=== PATIENT | male | born 1945 | race Caucasian/White ===

== ENCOUNTER 2017-12-22 14:20 | Observation (INO) | payer MEDICARE ==
[~2017-12-22] VITALS: Ht 177.8 cm; Wt 87.0 kg
[2017-12-22] VITALS (8 sets, daily range): BP systolic 15–186; BP diastolic 72–98; PULSE 51–65; RESP 14–20; TEMP 96.6–97.7; O2SAT 95–100
[~2017-12-22 14:20] MED LIST: ACYC30T; ALBU8I INH; ASPI81CH3; ATOR20TA PO; CART120C2 PO; CITA20TA4 PO; CO Q100C9 PO; DUONI NEB; FURO20 PO; GABA100C4 PO; GLUCOSAMINE1500 COM PO; ISOS30TA3 PO; METO50TA PO; MIRA25TA PO; MULT1TAB PO; NITR0.4S SL; PRED10 PO; PYRI1TAB5; TIMO0.5S29 EACH EYE; TRAZ50TA4 PO; TRIA.1%T TOP; VASO10TA8 PO; Z.0.COMMODE-3:1; Z.0.CPM; Z.0.WALKERFRONT; ZOVI400T15 PO; [UNRECOGNIZED DRUG - CODE] TOPICAL
[2017-12-22] MEDS ORDERED: ONDANSETRON HCL 4 MG/2 ML VIAL IV PUSH ONE (14:45)
[2017-12-22] MEDS ORDERED: SODIUM CHLORID 0.9% 500 ML INJ 500 ML IV ONE (14:45)
[2017-12-22] MEDS ORDERED: MORPHINE SULFATE 4 MG/ML INJ IV PUSH ONE (14:45)
--- NOTE | 2017-12-22 15:08 | RADRPT ---
EXAM DATE/TIME: 12/22/2017 14:45 [facility] COMPARISON: CHEST SINGLE AP, June 01, 2016, 18:47. INDICATIONS : Chest pain today MEDICAL HISTORY : Hypertension. Chronic obstructive pulmonary disease. SURGICAL HISTORY : CABG. Coronary artery stent. cervical and lumbar spine fusions ENCOUNTER: Initial ACUITY: 1 day PAIN SCORE: 10/10 LOCATION: Bilateral chest FINDINGS: A single view of the chest demonstrates the lungs to be symmetrically aerated without evidence of mas s, infiltrate or effusion. Sternal wires from previous biopsy are noted. The cardiomediastinal cont ours are unremarkable. Previous cervical spine fixation CONCLUSION: Previous bypass, complicated cardiomegaly David Mccabe MD FACR on December 22, 2017 at 15:05 Board Certified Radiologist. This report was verified electronically.
--- NOTE | 2017-12-22 15:12 | PD ---
HPI Chief Complaint: Chest Pain Time Seen by Provider: 14:31 Travel History International Travel<30 days: No Contact w/Intl Traveler<30days: No Traveled to known affect area: No History of Present Illness HPI 71-year-old male that presents to the ED for evaluation of chest pain. Per patient the chest pain started around 11:00 this morning. Per patient feels like a pressure. Per patient and the right side of the chest and moved to the middle. He has a history of heart disease and has had stents and bypass. Per patient he takes aspirin and nitroglycerin as well as multiple blood pressure medications and cholesterol medications. Denies any history of diabetes. Denies any recent travel or injury. Per patient he also feels nauseous. Denies vomiting. He denies any urinary or bowel movement issues. He states that he does have a history of chronic UTIs and has been followed by urologist was trying to figure out why he continues to have UTIs even after antibiotics. Per patient the pain is mostly in the epigastric and mid chest. 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 Del Valle recommended that he comes here to get evaluated. He took a full aspirin this morning and took 3 nitroglycerin with minimal relief. Per patient the pain is 7 out of 10. Does not radiate. Denies any back pain. PFSH Past Medical History Arthritis: Yes Asthma: No Autoimmune Disease: No Blood Disorders: No Anxiety: Yes Depression: Yes Heart Rhythm Problems: No Cancer: Yes (skin) Cardiac Catheterization: Yes Cardiovascular Problems: Yes (CABG, HTN) High Cholesterol: Yes Chest Pain: No Congestive Heart Failure: No COPD: No Cerebrovascular Accident: No Diabetes: No Endocrine: No Gastrointestinal Disorders: No GERD: Yes Glaucoma: Yes Genitourinary: Yes (UTI) Headaches: No Hepatitis: No Hiatal Hernia: No Hypertension: Yes Immune Disorder: No Implanted Vascular Access Dvce: Yes Kidney Stones: No Musculoskeletal: Yes (arhtritis neck and back problems and pain) Neurologic: Yes (paralysis in past, now resolved, PN) Psychiatric: Yes (depression and anxiety) Reproductive: No Respiratory: Yes (copd) Integumentary: No Migraines: No Myocardial Infarction: Yes Renal Failure: No Seizures: No Sleep Apnea: No Thyroid Disease: No Ulcer: No Tetanus Vaccination: < 5 Years Influenza Vaccination: Yes Past Surgical History Abdominal Surgery: Yes (hernia repair) AICD: No Appendectomy: No Body Medical Devices: hardware in the back Cardiac Surgery: Yes (quad bypass x1 cardiac by-pass) Cholecystectomy: No Coronary Artery Bypass Graft: Yes (1984 AND 1989) Coronary Stent: Yes Ear Surgery: No Endocrine Surgery: No Eye Surgery: Yes (alonso cataract) Genitourinary Surgery: No Gynecologic Surgery: No Joint Replacement: No Oral Surgery: Yes (t and a) Pacemaker: No Thoracic Surgery: Yes (CABG) Other Surgery: Yes (cervical fusionx3) Social History Alcohol Use: No Tobacco Use: No Substance Use: No Allergies-Medications (Allergen,Severity, Reaction): Coded Allergies: iodine (Verified Allergy, Severe, 12/22/17) No Known Allergies (Unverified Adverse Reaction, Unknown, 12/22/17) Reported Meds & Prescriptions Reported Meds & Active Scripts Active Review of Systems Except as stated in HPI: all other systems reviewed are Neg Physical Exam Narrative GENERAL: SKIN: Warm and dry. HEAD: Atraumatic. Normocephalic. EYES: Pupils equal and round. No scleral icterus. No injection or drainage. ENT: No nasal bleeding or discharge. Mucous membranes pink and moist. Tongue is midline. No uvula deviation. NECK: Trachea midline. No JVD. CARDIOVASCULAR: Regular rate and rhythm. No murmurs, S3, S4. RESPIRATORY: No accessory muscle use. Clear to auscultation. Breath sounds equal bilaterally. GASTROINTESTINAL: Abdomen soft, non-tender, nondistended. Hepatic and splenic margins not palpable. MUSCULOSKELETAL: Extremities without clubbing, cyanosis, or edema. No obvious deformities. NEUROLOGICAL: Awake and alert. No obvious cranial nerve deficits. Motor grossly within normal limits. Five out of 5 muscle strength in the arms and legs. Normal speech. PSYCHIATRIC: Appropriate mood and affect; insight and judgment normal. Data Data Last Documented VS Vital Signs Date Time Temp Pulse Resp B/P (MAP) Pulse Ox O2 Delivery O2 Flow Rate FiO2 12/22/17 17:43 51 20 160/77 (104) 98 Nasal Cannula 2.00 Orders Orders Electrocardiogram (12/22/17 14:31) B-Type Natriuretic Peptide (12/22/17 14:31) Ckmb (Isoenzyme) Profile (12/22/17 14:31) Complete Blood Count With Diff (12/22/17 14:31) Comprehensive Metabolic Panel (12/22/17 14:31) D-Dimer (12/22/17 14:31) Magnesium (Mg) (12/22/17 14:31) Prothrombin Time / Inr (Pt) (12/22/17 14:31) Act Partial Throm Time (Ptt) (12/22/17 14:31) Troponin I (12/22/17 14:31) Lipase (12/22/17 14:31) Chest, Single Ap (12/22/17 14:31) Ecg Monitoring (12/22/17 14:31) Bilateral Bp Monitoring (12/22/17 14:31) Iv Access Insert/Monitor (12/22/17 14:31) Oximetry (12/22/17 14:31) Oxygen Administration (12/22/17 14:31) Morphine Inj (Morphine Inj) (12/22/17 14:45) Sodium Chlorid 0.9% 500 Ml Inj (Ns 500 M (12/22/17 14:45) Ondansetron Inj (Zofran Inj) (12/22/17 14:45) CKMB (12/22/17 15:00) CKMB% (12/22/17 15:00) Ventilation & Perfusion Scan (12/22/17 ) Ckmb (Isoenzyme) Profile (12/22/17 18:00) Ckmb (Isoenzyme) Profile (12/22/17 21:00) Troponin I (12/22/17 18:00) Troponin I (12/22/17 21:00) Electrocardiogram (12/22/17 18:00) Electrocardiogram (12/22/17 21:00) Admit Order (Ed Use Only) (12/22/17 19:23) Activity Bed Rest With Brp (12/22/17:24) Vital Signs (Adult) Q4H (12/22/17:24) Cardiac Rhythm .As Directed (12/22/17:) Notify Dr: Other .PRN (12/22/17:) Notify Dr. Parameters (12/22/17:) Resp Oxygen Nasal Cannula (12/22/17 ) Ckmb (Isoenzyme) Profile (12/22/17:24) Ckmb (Isoenzyme) Profile (12/22/17:24) Troponin I (12/22/17:) Troponin I (2/12/18 22:24) Electrocardiogram (12/22/17 19:24) Electrocardiogram (12/22/17 22:24) ^ Obtain (12/22/17 19:24) Sodium Chloride 0.9% Flush (Ns Flush) (12/22/17 19:30) Sodium Chloride 0.9% Flush (Ns Flush) (12/22/17 21:00) Labs Laboratory Tests Test 12/22/17 15:00 12/22/17 17:20 White Blood Count 9.4 TH/MM3 Red Blood Count 3.97 MIL/MM3 Hemoglobin 13.6 GM/DL Hematocrit 39.3 % Mean Corpuscular Volume 98.9 FL Mean Corpuscular Hemoglobin 34.3 PG Mean Corpuscular Hemoglobin Concent 34.7 % Red Cell Distribution Width 14.7 % Platelet Count 169 TH/MM3 Mean Platelet Volume 8.1 FL Neutrophils (%) (Auto) 84.1 % Lymphocytes (%) (Auto) 12.8 % Monocytes (%) (Auto) 2.7 % Eosinophils (%) (Auto) 0.1 % Basophils (%) (Auto) 0.3 % Neutrophils # (Auto) 7.9 TH/MM3 Lymphocytes # (Auto) 1.2 TH/MM3 Monocytes # (Auto) 0.3 TH/MM3 Eosinophils # (Auto) 0.0 TH/MM3 Basophils # (Auto) 0.0 TH/MM3 CBC Comment DIFF FINAL Differential Comment Prothrombin Time 11.1 SEC Prothromb Time International Ratio 1.1 RATIO Activated Partial Thromboplast Time 21.8 SEC D-Dimer Quantitative (PE/DVT) 0.90 MG/L FEU Blood Urea Nitrogen 19 MG/DL Creatinine 1.20 MG/DL Random Glucose 145 MG/DL Total Protein 6.2 GM/DL Albumin 3.4 GM/DL Calcium Level 8.1 MG/DL Magnesium Level 2.0 MG/DL Alkaline Phosphatase 46 U/L Aspartate Amino Transf (AST/SGOT) 26 U/L Alanine Aminotransferase (ALT/SGPT) 36 U/L Total Bilirubin 0.5 MG/DL Sodium Level 143 MEQ/L Potassium Level 3.7 MEQ/L Chloride Level 106 MEQ/L Carbon Dioxide Level 30.7 MEQ/L Anion Gap 6 MEQ/L Estimat Glomerular Filtration Rate 59 ML/MIN Total Creatine Kinase 121 U/L 92 U/L Creatine Kinase MB 1.4 NG/ML Troponin I 0.04 NG/ML 0.04 NG/ML B-Type Natriuretic Peptide 269 PG/ML Lipase 143 U/L MDM Medical Decision Making Medical Screen Exam Complete: Yes Emergency Medical Condition: Yes Medical Record Reviewed: Yes Interpretation(s) EKG shows sinus rhythm with no sign of acute ischemia or arrhythmia read by me and attending. CBC & BMP Diagram 12/22/17 15:00 Total Protein 6.2 L, Albumin 3.4, Calcium Level 8.1 L, Magnesium Level 2.0, Alkaline Phosphatase 46, Aspartate Amino Transf (AST/SGOT) 26, Alanine Aminotransferase (ALT/SGPT) 36, Total Bilirubin 0.5 Last Impressions Chest X-Ray 12/22/17 1431 Signed Impressions: Service Date/Time: Friday, December 22, 2017 14:45 - CONCLUSION: Previous bypass, complicated cardiomegaly David Mccabe MD FACR Lung Scan-VQ Nuclear Medicine 12/22/17 0000 Signed Impressions: Service Date/Time: Friday, December 22, 2017 18:21 - CONCLUSION: 1. Negative for pulmonary embolus. Williams Velásquez MD troponin of 0.04 CK MB negative d-dimmer elevated Differential Diagnosis Chest pain versus a typical chest pain versus coronary artery disease versus pancreatitis versus ACS versus NSTEMI Narrative Course 72-year-old male that presents to the ED for evaluation of chest pain. Patient was properly examined and was found to have signs and symptoms concerning for ACS. Labs and imaging ordered. Initial EKG do not show any sign of ST elevation. Patient was given pain medication. Labs and imaging showed positive d-dimer. Case was discussed in my attending who recommends CTA. CTA was ordered. Patient apparently informed us that he has a severe allergy to iodine and contrast media so this was canceled and VQ scan was ordered instead. CT scan was negative. Second troponin was negative and EKG were negative for ST elevation. Because of his history and his chest pain I do recommend admission for further evaluation to the chest pain center. Patient agrees with this plan. Patient was admitted to the chest pain center. My attending Dr Hua evaluated the patient with me and agrees with this plan. Procedures EKG Prior to Arrival: No Diagnosis Primary Impression: Chest pain Qualified Codes: R07.9 - Chest pain, unspecified Admitting Information Admitting Physician Requests: [place] Dec 22, 2017 15:12
[2017-12-22 15:34] LABS: AUTOMATED NEUTROPHIL # 7.9 TH/MM3 (1.8-7.7); BASOPHIL % 0.3 % (0.0-2.0); EOSINOPHIL % 0.1 % (0.0-4.0); HEMATOCRIT 39.3 % (39.0-51.0); HEMOGLOBIN 13.6 GM/DL (13.0-17.0); LYMPH % 12.8 % (9.0-44.0); LYMPHOCYTE # 1.2 TH/MM3 (1.0-4.8); MEAN CELL VOLUME 98.9 FL (80.0-100.0); MEAN CORPUSCULAR HEMOGLOBIN 34.3 PG (27.0-34.0); MEAN CORPUSCULAR HGB CONC 34.7 % (32.0-36.0); MEAN PLATELET VOLUME 8.1 FL (7.0-11.0); MONO % 2.7 % (0.0-8.0); MONOCYTE # 0.3 TH/MM3 (0-0.9); NEUT % 84.1 % (16.0-70.0); PLATELET COUNT 169 TH/MM3 (150-450); RED BLOOD COUNT 3.97 MIL/MM3 (4.50-5.90); RED CELL DISTRIBUTION WIDTH 14.7 % (11.6-17.2); WHITE BLOOD COUNT 9.4 TH/MM3 (4.0-11.0)
[2017-12-22 15:49] LABS: INTERNATIONAL NORMALIZED RATIO 1.1 RATIO; PROTHROMBIN TIME - PATIENT 11.1 SEC (9.8-11.6)
[2017-12-22 15:50] LABS: D-DIMER 0.9 MG/L FEU (0.00-0.50)
[2017-12-22 15:51] LABS: ALBUMIN 3.4 GM/DL (3.4-5.0); AST (GOT) 26 U/L (15-37); BICARBONATE 30.7 MEQ/L (21.0-32.0); BLOOD UREA NITROGEN 19 MG/DL (7-18); CALCIUM 8.1 MG/DL (8.5-10.1); CHLORIDE 106 MEQ/L (98-107); GLOMERULAR FILTRATION RATE 59 ML/MIN (>89); GLUCOSE,RANDOM 145 MG/DL (74-106); SODIUM (NA) 143 MEQ/L (136-145)
[2017-12-22 15:56] LABS: ALKALINE PHOSPHATASE 46 U/L (45-117); ALT (GPT) 36 U/L (12-78); TOTAL BILIRUBIN ADULT 0.5 MG/DL (0.2-1.0); TOTAL PROTEIN 6.2 GM/DL (6.4-8.2); TROPONIN I 0.04 NG/ML (0.02-0.05)
--- NOTE | 2017-12-22 17:44 | PD ---
Physical Exam Date Seen by Provider: Dec 22, 2017 Time Seen by Provider: 16:00 Narrative I, Dr. Donahue , have reviewed the advance practice practitioner's documentation and am in agreement, met with the patient face to face, made the diagnosis, and the medical decision making was done by me. *My assessment and Findings: Patient is seen in the ER with PA, please see PA note for further details. Here for chest discomfort, shortness of breath, sent in by pharmacy district manager. On exam, pulmonary exam and cardiac Exam is fairly unremarkable. Vital signs are stable in the ER. EKG shows sinus bradycardia rate 59 bpm with T-wave inversions in the lateral leads. No signs of acute ST elevations. Laboratory Tests Test 12/22/17 15:00 12/22/17 17:20 Red Blood Count 3.97 MIL/MM3 (4.50-5.90) Mean Corpuscular Hemoglobin 34.3 PG (27.0-34.0) Neutrophils (%) (Auto) 84.1 % (16.0-70.0) Neutrophils # (Auto) 7.9 TH/MM3 (1.8-7.7) Activated Partial Thromboplast Time 21.8 SEC (24.3-30.1) D-Dimer Quantitative (PE/DVT) 0.90 MG/L FEU (0.00-0.50) Blood Urea Nitrogen 19 MG/DL (7-18) Random Glucose 145 MG/DL (74-106) Total Protein 6.2 GM/DL (6.4-8.2) Calcium Level 8.1 MG/DL (8.5-10.1) Estimat Glomerular Filtration Rate 59 ML/MIN (>89) B-Type Natriuretic Peptide 269 PG/ML (0-100) Last 24 hours Impressions Chest X-Ray 12/22/17 1431 Signed Impressions: Service Date/Time: Friday, December 22, 2017 14:45 - CONCLUSION: Previous bypass, complicated cardiomegaly David Mccabe MD FACR D-dimer is elevated. Cardiac enzyme was otherwise negative. EKG did not show signs of acute ST changes. CTA was ordered for further evaluation. No PE identified. Planning to admit for further treatment. Data Data Last Documented VS Vital Signs Date Time Temp Pulse Resp B/P (MAP) Pulse Ox O2 Delivery O2 Flow Rate FiO2 12/22/17 17:43 51 20 160/77 (104) 98 Nasal Cannula 2.00 Orders Orders Electrocardiogram (12/22/17 14:31) B-Type Natriuretic Peptide (12/22/17 14:31) Ckmb (Isoenzyme) Profile (12/22/17 14:31) Complete Blood Count With Diff (12/22/17 14:31) Comprehensive Metabolic Panel (12/22/17 14:31) D-Dimer (12/22/17 14:31) Magnesium (Mg) (12/22/17 14:31) Prothrombin Time / Inr (Pt) (12/22/17 14:31) Act Partial Throm Time (Ptt) (12/22/17 14:31) Troponin I (12/22/17 14:31) Lipase (12/22/17 14:31) Chest, Single Ap (12/22/17 14:31) Ecg Monitoring (12/22/17 14:31) Bilateral Bp Monitoring (12/22/17 14:31) Iv Access Insert/Monitor (12/22/17 14:31) Oximetry (12/22/17 14:31) Oxygen Administration (12/22/17 14:31) Morphine Inj (Morphine Inj) (12/22/17 14:45) Sodium Chlorid 0.9% 500 Ml Inj (Ns 500 M (12/22/17 14:45) Ondansetron Inj (Zofran Inj) (12/22/17 14:45) CKMB (12/22/17 15:00) CKMB% (12/22/17 15:00) Ventilation & Perfusion Scan (12/22/17 ) Ckmb (Isoenzyme) Profile (12/22/17 18:00) Ckmb (Isoenzyme) Profile (12/22/17 21:00) Troponin I (12/22/17 18:00) Troponin I (12/22/17 21:00) Electrocardiogram (12/22/17 18:00) Electrocardiogram (12/22/17 21:00) Labs Laboratory Tests Test 12/22/17 15:00 12/22/17 17:20 White Blood Count 9.4 TH/MM3 Red Blood Count 3.97 MIL/MM3 Hemoglobin 13.6 GM/DL Hematocrit 39.3 % Mean Corpuscular Volume 98.9 FL Mean Corpuscular Hemoglobin 34.3 PG Mean Corpuscular Hemoglobin Concent 34.7 % Red Cell Distribution Width 14.7 % Platelet Count 169 TH/MM3 Mean Platelet Volume 8.1 FL Neutrophils (%) (Auto) 84.1 % Lymphocytes (%) (Auto) 12.8 % Monocytes (%) (Auto) 2.7 % Eosinophils (%) (Auto) 0.1 % Basophils (%) (Auto) 0.3 % Neutrophils # (Auto) 7.9 TH/MM3 Lymphocytes # (Auto) 1.2 TH/MM3 Monocytes # (Auto) 0.3 TH/MM3 Eosinophils # (Auto) 0.0 TH/MM3 Basophils # (Auto) 0.0 TH/MM3 CBC Comment DIFF FINAL Differential Comment Prothrombin Time 11.1 SEC Prothromb Time International Ratio 1.1 RATIO Activated Partial Thromboplast Time 21.8 SEC D-Dimer Quantitative (PE/DVT) 0.90 MG/L FEU Blood Urea Nitrogen 19 MG/DL Creatinine 1.20 MG/DL Random Glucose 145 MG/DL Total Protein 6.2 GM/DL Albumin 3.4 GM/DL Calcium Level 8.1 MG/DL Magnesium Level 2.0 MG/DL Alkaline Phosphatase 46 U/L Aspartate Amino Transf (AST/SGOT) 26 U/L Alanine Aminotransferase (ALT/SGPT) 36 U/L Total Bilirubin 0.5 MG/DL Sodium Level 143 MEQ/L Potassium Level 3.7 MEQ/L Chloride Level 106 MEQ/L Carbon Dioxide Level 30.7 MEQ/L Anion Gap 6 MEQ/L Estimat Glomerular Filtration Rate 59 ML/MIN Total Creatine Kinase 121 U/L 92 U/L Creatine Kinase MB 1.4 NG/ML Troponin I 0.04 NG/ML 0.04 NG/ML B-Type Natriuretic Peptide 269 PG/ML Lipase 143 U/L [facility] Medical Record Reviewed: Yes Supervised Visit with LISA: Yes Diagnosis Primary Impression: Chest pain Admitting Information Admitting Physician Requests: Admit Liu Donahue MD Dec 22, 2017 17:44
[2017-12-22 18:08] LABS: TROPONIN I 0.04 NG/ML (0.02-0.05)
--- NOTE | 2017-12-22 18:52 | RADRPT ---
EXAM DATE/TIME: 12/22/2017 18:21 [facility] COMPARISON: No previous studies available for comparison. INDICATIONS : Right sided chest pain. DOSE: 8.1 mCi Tc99m MAA IV 2.3 mCi Tc99m DTPA aerosol MEDICAL HISTORY : Cardiovascular disease. Hypertension. Chronic obstructive pulmonary disease. SURGICAL HISTORY : Fusion, lumbar. CABG Coronary artery stent. ENCOUNTER: Initial ACUITY: 1 day PAIN SCALE: 3/10 LOCATION: Right chest TECHNIQUE: Following five minutes of tidal breathing of DTPA aerosol, planar images of the lungs were performed in eight projections. The patient was then injected with MAA, and eight-view perfusion scan was perf ormed. FINDINGS: There is a homogeneous pattern of aerosol delivery to the periphery of both lungs. No focal ventilat ory defects are seen. The perfusion lung scan demonstrates a homogenous pattern of uptake in both lungs. No segmental or s ubsegmental defects are seen. CONCLUSION: 1. Negative for pulmonary embolus. Williams Velásquez MD on December 22, 2017 at 18:49 Board Certified Radiologist. This report was verified electronically.
[2017-12-22] MEDS ORDERED: IOHEXOL 350 MG/ML 100 ML BTL (for Cath Lab) OTHER ONE (19:25)
[2017-12-22] MEDS ORDERED: SODIUM CHLORIDE 0.9% FLUSH 10 ML FLUSH IV FLUSH PRN (19:30)
[2017-12-22 20:43] LABS: TROPONIN I 0.04 NG/ML (0.02-0.05)
[2017-12-22] MEDS: SODIUM CHLORIDE 0.9% FLUSH 10 ML FLUSH IV FLUSH SCH (21:00)
[2017-12-23] VITALS (14 sets, daily range): BP systolic 101–214; BP diastolic 55–98; PULSE 48–93; RESP 16–18; TEMP 97.7–98.1; O2SAT 93–99
[2017-12-23] MEDS ORDERED: TERAZOSIN HCL 5 MG CAP PO ONE (06:00)
[2017-12-23] MEDS ORDERED: TIMO0.5S30 RIGHT EYE (07:43)
[2017-12-23] MEDS ORDERED: ISOS30TA3 PO ×2 (07:43→11:45)
[2017-12-23] MEDS ORDERED: CITA20TA4 PO (07:43)
[2017-12-23] MEDS ORDERED: MIRA50TA PO (07:43)
[2017-12-23] MEDS ORDERED: NITR1SUB3 SL (07:43)
[2017-12-23] MEDS ORDERED: ENAL10TA PO (07:43)
[2017-12-23] MEDS ORDERED: PRED10 PO (07:43)
[2017-12-23] MEDS ORDERED: TRAZ50TA12 PO (07:43)
[2017-12-23] MEDS ORDERED: GABA300C5 PO (07:43)
[2017-12-23] MEDS ORDERED: ATOR20TA15 PO (07:43)
[2017-12-23] MEDS ORDERED: ASPI-183 PO (07:43)
[2017-12-23] MEDS ORDERED: ACYC400T PO (07:43)
[2017-12-23] MEDS ORDERED: FURO20TA PO (07:43)
[2017-12-23] MEDS ORDERED: METO50TA PO (07:43)
[2017-12-23] MEDS ORDERED: ACYC5OIN4 TOPICAL (07:43)
[2017-12-23] MEDS ORDERED: CART120C PO (07:43)
[2017-12-23] MEDS: SODIUM CHLORIDE 0.9% FLUSH 10 ML FLUSH IV FLUSH SCH ×2 (09:18→23:04)
--- NOTE | 2017-12-23 11:14 | HHI.HP ---
[facility] Primary Care Physician Leyla Cleveland M.D. Chief Complaint Chest pain History of Present Illness This is a 72-year-old male with history of CAD with a CABG in 1984, 1990, and having stents since then the presents to ED with a complaint of suddenly developing a pressure in the left center of his chest with some shortness of breath while watching television yesterday at 10 in the morning at home. He also felt dizzy. He took a sublingual nitroglycerin without change. Took a second 1 also without improving his symptoms. States he called his tape duplicator office which is Dr. Del Valle office and that he was told to take a third nitroglycerin and go to the ED. He states the third nitroglycerin did not help the chest discomfort. States the discomfort eventually resolved within about 2 hours. States it does feel somewhat similar to when he did bypassing and stents although the discomfort in those situations were much more intense and the discomfort would radiate down his arm. That did not happen with this discomfort. The discomfort has not returned since being in the chest pain center. Found nothing to worsen his symptoms when he had them yesterday. Cannot recall recent stress testing. Denies recent illness. Denies fevers or chills. Voices compliance with his medications. Review of Systems General: Patient denies fevers, chills, and recent travel. HEENT: Patient denies headache, sore throat, difficulty swallowing. Cardiovascular: Has the chest discomfort as mentioned above. Denies sensation of heart beating rapidly or irregularly. No syncope. Denies diaphoresis. Respiratory: He was short of breath. Denies inspirational chest discomfort. Denies coughing wheezing or hemoptysis. GI: He was nauseous. Patient denies vomiting, diarrhea, abdominal pain, bloody stools. Musculoskeletal: Chronic back pain. Patient denies joint pain or edema. Denies calf pain or edema. Neurovascular: Patient denies numbness, tingling, weakness in extremities. Denies headache. Endocrine: Denies polyuria and polydipsia. Hematologic: Denies easy bruising. Skin: Denies rash or itching. Past Family Social History Allergies: Coded Allergies: iodine (Verified Allergy, Severe, 12/22/17) No Known Allergies (Unverified Adverse Reaction, Unknown, 12/22/17) Past Medical History CAD with a four-vessel bypass in 1984, single-vessel bypass in 1990, stents since then. Peripheral vascular disease with atherectomy and stent of the left superficial femoral artery. Hypertension, hyperlipidemia, chronic back pain. Denies diabetes. Past Surgical History CABG in 1984, redo CABG 1990, heart catheterizations with stenting and also without interventions. Stenting of the left superficial femoral artery. Cataracts. Cervical fusion. Hernia repair. Reported Medications Reported Meds & Active Scripts Active Reported Acyclovir Topical (Acyclovir) 5% Oint 1 Applic TOPICAL Q3HR Acyclovir 400 Mg Tab 400 Mg PO BID Aspirin 325 Mg Tab 325 Mg PO DAILY Atorvastatin (Atorvastatin Calcium) 20 Mg Tab 20 Mg PO HS Citalopram (Citalopram Hydrobromide) 20 Mg Tab 20 Mg PO HS Cartia Xt (Diltiazem ER 24 HR) 120 Mg Caper 120 Mg PO DAILY Enalapril (Enalapril Maleate) 10 Mg Tab 10 Mg PO BID Furosemide 20 Mg Tab 20 Mg PO DAILY Isosorbide Mononitrate ER (Isosorbide Mononitrate) 30 Mg Veronica 30 Mg PO DAILY Metoprolol Tartrate 50 Mg Tab 50 Mg PO DAILY Myrbetriq (Mirabegron) 50 Mg Tab 50 Mg PO DAILY Nitroglycerin SL (Nitroglycerin) 0.4 Mg Subl 0.4 Mg SL DIRECTED PRN ONE TABLET UNDER THE TONGUE NEEDED FOR CHEST PAIN, MAY REPEAT EVERY FIVE MINUTES FOR A TOTAL OF 3 DOSES OR CALL 911 IF NO RELIEF Prednisone 10 Mg Tab 10 Mg PO DAILY Timolol Opth Drops 0.5 % Soln 1 Drop RIGHT EYE BID Trazodone (Trazodone HCl) 50 Mg Tab 50 Mg PO HS Gabapentin 300 Mg Cap 300 Mg PO TID Active Ordered Medications Current Medications Medications (Trade) Dose Ordered Sig/Evy Route Start Time Stop Time Status Last Admin (NS Flush) 2 ml UNSCH PRN IV FLUSH 12/22/17 19:30 (NS Flush) 2 ml BID IV FLUSH 12/22/17 21:00 12/23/17 09:18 Family History There is family history of CAD. Social History He is a non-smoker. Denies alcohol or illicit drug use. Physical Exam Vital Signs Vital Signs Date Time Temp Pulse Resp B/P (MAP) Pulse Ox O2 Delivery O2 Flow Rate FiO2 12/23/17 07:12 97.8 73 16 127/65 (85) 98 Manual Cuff/Auscultation 2/13/18 05:21 210/92 (131) 12/23/17 05:16 53 16 206/94 (131) 12/23/17 04:18 48 12/23/17 03:58 98.1 54 18 214/98 (136) 98 12/23/17 00:02 48 12/22/17 23:29 97.7 56 18 158/74 (102) 100 12/22/17 21:18 56 12/22/17 21:15 96.6 56 18 180/98 (125) 99 12/22/17 20:00 98 Nasal Cannula 2.00 12/22/17 17:43 51 20 160/77 (104) 98 Nasal Cannula 2.00 12/22/17 15:04 55 14 138/72 (94) 97 152/72 (98) 12/22/17 15:00 (120) 95 Room Air 12/22/17 15:00 96 Room Air 12/22/17 15:00 55 12/22/17 14:33 65 16 186/87 (120) 98 Room Air Physical Exam GENERAL: This is a well-nourished, well-developed patient, in no apparent distress. Patient speaks in clear complete sentences. Patient is pleasant. HEENT: Head is atraumatic and normocephalic. Neck is supple without lymphadenopathy and trachea is midline. No JVD or carotid bruits. CARDIOVASCULAR: Regular rate and rhythm without murmurs, gallops, or rubs. RESPIRATORY: Clear to auscultation. Breath sounds equal bilaterally. No wheezes , rales, or rhonchi. There is healed midline scar from prior sternotomy. Chest wall is nontender. No use of accessory muscles. GASTROINTESTINAL: Abdomen is nontender, nondistended. Abdomen soft. No obvious pulsatile mass or bruit. No CVA tenderness. Strong femoral pulses bilaterally. Normal bowel sounds in all quadrants. MUSCULOSKELETAL: Patient is moving upper and lower extremities freely. No calf tenderness or edema, no Homans sign. Strong pulses in upper and lower extremities. NEUROLOGICAL: Patient is alert and oriented. Cranial nerves 2-12 are grossly intact. No focal deficits and speech is clear. SKIN: No rash and turgor is normal. Laboratory Laboratory Tests Test 12/22/17 15:00 12/22/17 17:20 12/22/17 19:45 White Blood Count 9.4 Red Blood Count 3.97 Hemoglobin 13.6 Hematocrit 39.3 Mean Corpuscular Volume 98.9 Mean Corpuscular Hemoglobin 34.3 Mean Corpuscular Hemoglobin Concent 34.7 Red Cell Distribution Width 14.7 Platelet Count 169 Mean Platelet Volume 8.1 Neutrophils (%) (Auto) 84.1 Lymphocytes (%) (Auto) 12.8 Monocytes (%) (Auto) 2.7 Eosinophils (%) (Auto) 0.1 Basophils (%) (Auto) 0.3 Neutrophils # (Auto) 7.9 Lymphocytes # (Auto) 1.2 Monocytes # (Auto) 0.3 Eosinophils # (Auto) 0.0 Basophils # (Auto) 0.0 CBC Comment DIFF FINAL Differential Comment Prothrombin Time 11.1 Prothromb Time International Ratio 1.1 Activated Partial Thromboplast Time 21.8 D-Dimer Quantitative (PE/DVT) 0.90 Blood Urea Nitrogen 19 Creatinine 1.20 Random Glucose 145 Total Protein 6.2 Albumin 3.4 Calcium Level 8.1 Magnesium Level 2.0 Alkaline Phosphatase 46 Aspartate Amino Transf (AST/SGOT) 26 Alanine Aminotransferase (ALT/SGPT) 36 Total Bilirubin 0.5 Sodium Level 143 Potassium Level 3.7 Chloride Level 106 Carbon Dioxide Level 30.7 Anion Gap 6 Estimat Glomerular Filtration Rate 59 Total Creatine Kinase 121 92 92 Creatine Kinase MB 1.4 Troponin I 0.04 0.04 0.04 B-Type Natriuretic Peptide 269 Lipase 143 Result Diagram: 12/22/17 1500 12/22/17 1500 Imaging Last 48 hours Impressions Chest X-Ray 12/22/17 1431 Signed Impressions: Service Date/Time: Friday, December 22, 2017 14:45 - CONCLUSION: Previous bypass, complicated cardiomegaly David Mccabe MD FACR Lung Scan-V Nuclear Medicine 12/22/17 0000 Signed Impressions: Service Date/Time: Friday, December 22, 2017 18:21 - CONCLUSION: 1. Negative for pulmonary embolus. Williams Velásquez MD Course EKGs are sinus rhythm with nonspecific inferior lateral ST T changes. These are seen on a prior EKG as well. Caprini VTE Risk Assessment Caprini VTE Risk Assessment: Mod/High Risk (score >= 2) Caprini Risk Assessment Model Point Value = 1 Point Value = 2 Point Value = 3 Point Value = 5 Age 41-60 Minor surgery BMI > 25 kg/m2 Swollen legs Varicose veins or History of unexplained or recurrent spontaneous Oral contraceptives or hormone replacement Sepsis (< 1 month) Serious lung disease, including pneumonia (< 1 month) Abnormal pulmonary function Acute myocardial infarction Congestive heart failure (< 1 month) History of inflammatory bowel disease Medical patient at bed rest Age 61-74 Arthroscopic surgery Major open surgery (> 45 min) Laparoscopic surgery (> 45 min) Malignancy Confined to bed (> 72 hours) Immobilizing plaster cast Central venous access Age >= 75 History of VTE Family history of VTE Factor V Leiden Prothrombin [id number] Lupus anticoagulant Anticardiolipin antibodies Elevated serum homocysteine Heparin-induced thrombocytopenia Other congenital or acquired thrombophilia Stroke (< 1 month) Elective arthroplasty Hip, pelvis, or leg fracture Acute spinal cord injury (< 1 month) Prophylaxis Regimen Total Risk Factor Score Risk Level Prophylaxis Regimen 0-1 Low Early ambulation 2 Moderate Order ONE of the following: *Sequential Compression Device (SCD) *Heparin 5000 units SQ BID 3-4 Higher Order ONE of the following medications: *Heparin 5000 units SQ TID *Enoxaparin/Lovenox 40 mg SQ daily (WT < 150 kg, CrCl > 30 mL/min) *Enoxaparin/Lovenox 30 mg SQ daily (WT < 150 kg, CrCl > 10-29 mL/min) *Enoxaparin/Lovenox 30 mg SQ BID (WT < 150 kg, CrCl > 30 mL/min) AND/OR *Sequential Compression Device (SCD) 5 or more Highest Order ONE of the following medications: *Heparin 5000 units SQ TID (Preferred with Epidurals) *Enoxaparin/Lovenox 40 mg SQ daily (WT < 150 kg, CrCl > 30 mL/min) *Enoxaparin/Lovenox 30 mg SQ daily (WT < 150 kg, CrCl > 10-29 mL/min) *Enoxaparin/Lovenox 30 mg SQ BID (WT < 150 kg, CrCl > 30 mL/min) AND *Sequential Compression Device (SCD) Assessment and Plan Assessment and Plan * Chest pain: Patient has had serial cardiac enzymes and EKGs for ruling out purposes. He was seen by Dr. Arellano cardiology in the chest pain center. I discussed this patient also with Dr. Damien Del Valle. Patient will need to wait until tomorrow to have a Lexiscan as he had a VQ scan last evening while in the chest pain center to rule out pulmonary embolus. If the stress test is nonischemic he would likely be discharged home with instructions to follow-up with his PCP and tape duplicator. He should return to ED for interval issues. Plans would change if his stress test were to be ischemic. * CAD: This will be reassessed with stress testing tomorrow afternoon. I spoke with nuclear medicine. States they will be able to do the stress test at 1:00 tomorrow afternoon. * Hypertension: Continue medications. We are waiting for his to arrive with his medications to continue them. * Hyperlipidemia: We will continue his medication. Patient is stable at this time. He is agreeable to this plan. Silvio Hilton Dec 23, 2017 11:14
[2017-12-23] MEDS ORDERED: BENA10TA PO (11:45)
[2017-12-23] MEDS ORDERED: TRAZ100T10 PO (11:45)
[2017-12-23] MEDS ORDERED: ALPR0.25 PO (11:45)
[2017-12-23] MEDS ORDERED: PANT40TA3 PO (11:45)
[2017-12-23] MEDS ORDERED: MELO15TA20 PO (11:45)
[2017-12-23] MEDS ORDERED: DIAZ5TAB PO (11:45)
[2017-12-23] MEDS ORDERED: DIVA250T PO (11:45)
[2017-12-23] MEDS ORDERED: ALPRAZolam 0.25 MG TAB PO PRN (12:00)
[2017-12-23] MEDS: ASPIRIN 325 MG TAB PO SCH (13:54)
[2017-12-23] MEDS: LISINOPRIL 10 MG TAB PO SCH ×2 (13:54→14:10)
[2017-12-23] MEDS: METOPROLOL TARTRATE 50 MG TAB PO SCH ×2 (13:54→14:10)
[2017-12-23] MEDS: ISOSORBIDE MONONITRATE 30 MG CR TAB (IMDUR) PO SCH ×2 (13:54→23:05)
[2017-12-23] MEDS: predniSONE 10 MG TAB PO SCH (13:54)
[2017-12-23] MEDS: PANTOPRAZOLE SOD 40 MG DELAYED RELEASE TAB PO SCH (13:54)
[2017-12-23] MEDS: FUROSEMIDE 20 MG TAB PO SCH (13:54)
[2017-12-23] MEDS: GABAPENTIN 300 MG CAP PO SCH ×2 (13:54→17:46)
[2017-12-23] MEDS ORDERED: RESP: ALBUTEROL 2.5 MG/IPRATROPIUM 0.5 MG NEB (PRN) INH (15:30)
[2017-12-23] MEDS ORDERED: cloNIDine HCL 0.1 MG TAB PO PRN (15:30)
--- NOTE | 2017-12-23 18:07 | EKG ---
Date Performed: 12/22/2017 Time Performed: 22:32:49 PTAGE: 72 years EKG: SINUS BRADYCARDIA ST DEVIATION AND MODERATE T-WAVE ABNORMALITY, CONSIDER LATERAL ISCHEMIA S T DEVIATION AND MODERATE T-WAVE ABNORMALITY, CONSIDER INFERIOR ISCHEMIA ABNORMAL ECG Since PREVIOUS TRACING , no significant change noted PREVIOUS TRACIN12/22/2017 19.40 DOCTOR: Erika Arellano Interpretating Date/Time 12/23/2017 18:05:48
--- NOTE | 2017-12-23 18:09 | EKG ---
Date Performed: 12/22/2017 Time Performed: 19:40:45 PTAGE: 72 years EKG: SINUS BRADYCARDIA ST DEVIATION AND MODERATE T-WAVE ABNORMALITY, CONSIDER LATERAL ISCHEMIA S T DEVIATION AND MODERATE T-WAVE ABNORMALITY, CONSIDER INFERIOR ISCHEMIA ABNORMAL ECG Since PREVIOUS TRACING , no significant change noted DOCTOR: Erika Arellano Interpretating Date/Time 12/23/2017 18:07:06
--- NOTE | 2017-12-23 18:10 | EKG ---
Date Performed: 12/22/2017 Time Performed: 17:23:35 PTAGE: 72 years EKG: SINUS BRADYCARDIA ST DEVIATION AND MODERATE T-WAVE ABNORMALITY, CONSIDER LATERAL ISCHEMIA S T DEVIATION AND MODERATE T-WAVE ABNORMALITY, CONSIDER INFERIOR ISCHEMIA ABNORMAL ECG Since PREVIOUS TRACING , no significant change noted PREVIOUS TRACIN12/22/2017 14.23 DOCTOR: Erika Arellano Interpretating Date/Time 12/23/2017 18:08:24
--- NOTE | 2017-12-23 18:11 | EKG ---
Date Performed: 12/22/2017 Time Performed: 14:23:30 PTAGE: 72 years EKG: Sinus rhythm PROBABLE INFERIOR MYOCARDIAL INFARCTION MODERATE T-WAVE ABNORMALITY, CONSIDER LATERAL ISCHEMIA ABNOR MAL ECG Since PREVIOUS TRACING , no significant change noted DOCTOR: Erika Arellano Interpretating Date/Time 12/23/2017 18:08:57
[2017-12-23] MEDS: CITALOPRAM HYDROBROMIDE 20 MG TAB PO SCH (23:04)
[2017-12-23] MEDS: DIVALPROEX SODIUM DELAYED RELEASE 250 MG TAB PO SCH (23:05)
[2017-12-23] MEDS: ATORVASTATIN 20 MG TAB PO SCH (23:05)
[2017-12-24] VITALS (8 sets, daily range): BP systolic 121–174; BP diastolic 62–87; PULSE 56–87; RESP 14–18; TEMP 97.5–98.1; O2SAT 96–98
[2017-12-24] MEDS: ISOSORBIDE MONONITRATE 30 MG CR TAB (IMDUR) PO SCH ×2 (07:46→21:22)
--- NOTE | 2017-12-24 08:31 | PD.CARD.PN ---
Subjective Subjective Remarks No complaints overnight, no further chest discomfort or tightness Objective Medications Current Medications Medications (Trade) Dose Ordered Sig/Evy Route Start Time Stop Time Status Last Admin (NS Flush) 2 ml UNSCH PRN IV FLUSH 12/22/17 19:30 (NS Flush) 2 ml BID IV FLUSH 12/22/17 21:00 12/23/17 23:04 (Xanax) 0.25 mg BID PRN PO 12/23/17 12:00 (Lipitor) 20 mg HS PO 12/23/17 21:00 12/23/17 23:05 (Prinivil) 10 mg DAILY PO 12/23/17 12:00 (CeleXA) 20 mg HS PO 12/23/17 21:00 12/23/17 23:04 (Depakote Dr) 250 mg HS PO 12/23/17 21:00 12/23/17 23:05 (Lasix) 20 mg DAILY PO 12/23/17 12:00 12/23/17 13:54 (Neurontin) 300 mg TID PO 12/23/17 13:00 12/23/17 17:46 (Imdur) 30 mg BID@0700,2100 PO 12/23/17 12:00 12/24/17 07:46 (Lopressor) 50 mg DAILY PO 12/23/17 12:00 (Protonix) 40 mg DAILY PO 12/23/17 12:00 12/23/17 13:54 (Deltasone) 10 mg DAILY PO 12/23/17 12:00 12/23/17 13:54 (Aspirin) 325 mg DAILY PO 12/23/17 12:00 12/23/17 13:54 (Duoneb Neb) 1 ampule Q4HR NEB PRN INH 12/23/17 15:30 (Catapres) 0.1 mg Q4H PRN PO 12/23/17 15:30 Vital Signs / I&O Vital Signs Date Time Temp Pulse Resp B/P (MAP) Pulse Ox O2 Delivery O2 Flow Rate FiO2 12/24/17 07:17 98.0 75 18 174/87 (116) 98 12/24/17 04:00 87 12/24/17 03:37 97.6 84 16 141/79 (99) 96 12/24/17 00:05 73 12/24/17 00:03 97.5 77 14 131/62 (85) 98 12/23/17 20:26 98.1 93 17 114/66 (82) 93 12/23/17 20:00 98 Nasal Cannula 1.00 12/23/17 17:08 132/74 (93) 12/23/17 15:44 66 12/23/17 13:46 98.1 71 16 101/55 (70) 98 12/23/17 11:59 76 12/23/17 11:08 97.7 67 16 132/70 (90) 99 I/O 12/23/17 12/23/17 12/23/17 12/24/17 12/24/17 12/24/17 07:00 15:00 23:00 07:00 15:00 23:00 # Voids 2 2 # Bowel Movements 0 1 Physical Exam Alert and oriented x3, no acute distress. RRR without murmur or gallop. Lungs clear throughout, able to speak in full sentences. Laboratory Last 48 hours Impressions Chest X-Ray 12/22/17 1431 Signed Impressions: Service Date/Time: Friday, December 22, 2017 14:45 - CONCLUSION: Previous bypass, complicated cardiomegaly David Mccabe MD FACR Imaging Last 48 hours Impressions Chest X-Ray 12/22/17 1431 Signed Impressions: Service Date/Time: Friday, December 22, 2017 14:45 - CONCLUSION: Previous bypass, complicated cardiomegaly David Mccabe MD FACR Assessment and Plan Assessment and Plan #1 Chest pain with history of CAD-continue with plan Lexiscan this afternoon. If unremarkable, plans to discharge home with follow up with pcp and emergency worker. If lexiscan report concerning for ischemia will discuss with patient cardiologists, Dr Damien Del Valle, who has been previously made aware of patients admission to [facility]. Sophia Chakraborty Dec 24, 2017 08:31
[2017-12-24] MEDS: GABAPENTIN 300 MG CAP PO SCH ×3 (09:00→18:31)
[2017-12-24] MEDS ORDERED: REGADENOSON INJ 0.4 MG/5 ML SYR ONE (10:04)
[2017-12-24] MEDS: LISINOPRIL 10 MG TAB PO SCH (11:58)
[2017-12-24] MEDS: FUROSEMIDE 20 MG TAB PO SCH (11:58)
[2017-12-24] MEDS: predniSONE 10 MG TAB PO SCH (11:58)
[2017-12-24] MEDS: PANTOPRAZOLE SOD 40 MG DELAYED RELEASE TAB PO SCH (11:59)
[2017-12-24] MEDS: ASPIRIN 325 MG TAB PO SCH (11:59)
[2017-12-24] MEDS: METOPROLOL TARTRATE 50 MG TAB PO SCH (11:59)
[2017-12-24] MEDS: SODIUM CHLORIDE 0.9% FLUSH 10 ML FLUSH IV FLUSH SCH ×2 (12:00→21:22)
--- NOTE | 2017-12-24 12:46 | RADRPT ---
EXAM DATE/TIME: 12/24/2017 09:57 [place] COMPARISON: No previous studies available for comparison. INDICATIONS : Right chest pain radiating to center chest with nausea. Angina. Abnormal EKG. DOSE: 27.2 mCi Tc99m Myoview at stress. 8.8 mCi Tc99m Myoview at rest. 0.4 mg Lexiscan STRESS SYMPTOMS: Chest pressure, headache. EJECTION FRACTION: 57% MEDICAL HISTORY : Myocardial infarction. Hypertension. Gastroesophageal reflux disease. SURGICAL HISTORY : CABG Coronary artery stent. Umbilical hernia repair. ENCOUNTER: Initial ACUITY: 1 day PAIN SCALE: 7/10 LOCATION: Right chest TECHNIQUE: The patient underwent pharmacologic stress with infusion of prescribed dose. Continuous ECG tracing was monitored during stress. Gated SPECT imaging was performed after stress and conventional SPECT i maging was performed at rest. The examination was performed on a SPECT/CT scanner, both attenuation and non-corrected datasets were reviewed. FINDINGS: DISTRIBUTION: The maximum perfused segment at stress is in the anterolateral wall. PERFUSION STUDY: There is 20% redistribution involving the inferior wall. The remaining myocardium shows no reversible defects. GATED STUDY: There is intact wall motion and thickening without hypokinetic or dyskinetic segments. CONCLUSION: Reversible defect involving the inferior wall raising concern for possible ischemia. RISK CATEGORY: Intermediate Kayden Hernandez Jr., MD on December 24, 2017 at 12:40 Board Certified Radiologist. This report was verified electronically.
[2017-12-24] MEDS ORDERED: predniSONE 20 MG TAB PO ONE (21:00)
[2017-12-24] MEDS: CITALOPRAM HYDROBROMIDE 20 MG TAB PO SCH (21:20)
[2017-12-24] MEDS: DIVALPROEX SODIUM DELAYED RELEASE 250 MG TAB PO SCH (21:21)
[2017-12-24] MEDS: ATORVASTATIN 20 MG TAB PO SCH (21:21)
[2017-12-25 00:03] VITALS: PULSE 54
[2017-12-25 00:09] VITALS: BP 131/71; PULSE 61; RESP 16; TEMP 97.6; O2SAT 100
[2017-12-25 03:45] VITALS: BP 144/79; PULSE 63; RESP 14; TEMP 98.6; O2SAT 98
[2017-12-25] MEDS ORDERED: METOPROLOL TARTRATE 25 MG TAB PO PRN (07:00)
[2017-12-25] MEDS ORDERED: LACTATED RINGER'S 1000 ML IV PRN (07:00)
[2017-12-25] MEDS ORDERED: CHLORHEXIDINE GLUCONATE 2 % 1 PACK (2 CLOTHS) TOPICAL PRN (07:00)
[2017-12-25] MEDS ORDERED: POVIDONE IODINE 5% (ANTISEPSIS KIT) 4 APPLICATIONS EACH NARE PRN (07:00)
[2017-12-25] MEDS ORDERED: INSULIN HUMAN REGULAR 1,000 UNITS/10 ML VIAL SQ PRN (07:00)
[2017-12-25] MEDS ORDERED: SODIUM CHLORID 0.9% 500 ML IV PRN (07:00)
[2017-12-25 07:03] VITALS: BP 170/86; PULSE 76; RESP 20; TEMP 98; O2SAT 97
--- NOTE | 2017-12-25 07:03 | TR ---
Date Performed: 12/24/2017 Time Performed: 10:33:11 DOCTOR: Erika Arellano DRUG LIST: CLINICAL HISTORY: REASON FOR TEST: CHEST PAIN REASON FOR ENDING: OBSERVATION: CONCLUSION: Lexiscan stress test was performed under standard four minute protocol. Radionuclid e was injected one minute prior to ending the test. No electrocardiographic abormalities were present to suggest ischemia. Nuclear imaging and interpretation are pending. COMMENTS:
[2017-12-25] MEDS: ISOSORBIDE MONONITRATE 30 MG CR TAB (IMDUR) PO SCH (07:37)
[2017-12-25 08:13] VITALS: O2SAT 97
[2017-12-25] MEDS ORDERED: predniSONE 20 MG TAB PO ONE (09:00)
[2017-12-25] MEDS: ASPIRIN 325 MG TAB PO SCH (09:42)
[2017-12-25] MEDS: SODIUM CHLORIDE 0.9% FLUSH 10 ML FLUSH IV FLUSH SCH (09:42)
[2017-12-25] MEDS: predniSONE 10 MG TAB PO SCH (09:42)
[2017-12-25] MEDS: METOPROLOL TARTRATE 50 MG TAB PO SCH (09:42)
[2017-12-25] MEDS: PANTOPRAZOLE SOD 40 MG DELAYED RELEASE TAB PO SCH (09:43)
[2017-12-25] MEDS: FUROSEMIDE 20 MG TAB PO SCH (09:43)
[2017-12-25] MEDS: LISINOPRIL 10 MG TAB PO SCH (09:43)
[2017-12-25] MEDS: GABAPENTIN 300 MG CAP PO SCH (09:43)
[2017-12-25] MEDS ORDERED: HEPARIN-NS/PF FLUSH BAG 2,000 ML IV FLUSH ONE (12:15)
[2017-12-25] MEDS ORDERED: MIDAZOLAM HCL 2 MG/2 ML VIAL ONE (12:15)
[2017-12-25] MEDS ORDERED: HYDROCORTISONE SOD SUCCINATE 100 MG VIAL ONE (12:24)
[2017-12-25] MEDS ORDERED: diphenhydrAMINE HCL 50 MG/ML VIAL ONE (12:24)
--- NOTE | 2017-12-25 12:59 | CATHPROC ---
Attent[employer] HIS Report Study Information Study Number Admission Scheduled Start Study Start [id number] Dec 22 2017 7:24PM 12/25/2017 Dec 25 2017 11:52AM [place] Service Cardiac Catheterization Admit Source Facility Department Emergency department [facility] - [facility] Physician and Clinical Staff Initial Damien Leigh Level Glass Forming Machine Operator Arlin Glover,RN Recorder Arlin Polk,RT(R) Scrub Betty, Monie,ELECTRIC LIFT TRUCK DRIVER TECH2 Procedures Performed Procedure Location (Site) Vessel Name Angiogram LV AO Arch (A1) Aorta Coronary Angiograms LCA Left Coronary Coronary Angiograms RCA Right Coronary Coronary Angiograms GREWAL-LAD Left Coronary Coronary Angiograms SVG-LCX CIRC Coronary Angiograms SVG-RCA Right Coronary L Heart Cath Wire insertion Fem Art (left) Femoral Art Equipment Time Piano Teacher Description Size Mfg Part Number Used/Scraped TRANSDUCER, TRUWAVE [id number] 12:33 Cloudmark TURNER * Used W/STOCKCOCK *[id number] *[id number] *[id number] *[id number] [id number] *[id number] 12:47 DAIG/ST. DON MEDICAL ANGIOSEAL, FR6 VIP FR 6 Used *[id number] 12:33 MEDLINE INDUSTRIES PACK, CCL CUSTOM * Used *[id number] 12:33 Adzilla PACER PEN, SKIN DUAL W/ RULER * Used *[id number] 12:33 ScriptPad MEDICAL SHEATH, FR6.5 PRELUDE 11CM FR 6.5 038ACT Used *[id number] 12:33 [employer]Pad MEDICAL WIRE, 3MMJ .035 180CM 180CM Used *[id number] 12:33 NAMIC MANIFOLD, 4 PORT * Used *[id number] 12:33 NYCOMED OMNIPAQUE, 350 MG, 100ML 100ML [id number] Used [id number] 12:33 HARKINS MEDICAL BLANKET,WARM AIR CCL * Used *[id number] Equipment Model, Serial, Lot Number and Expiration Data Description Model Number Serial Number Lot Number Expiration Date ANGIOSEAL, FR6 VIP [id number] 06-09-2018 History: Current Medications Medication Dosage/Unit Route Frequency Last Date/Time Taken ASA Statins (any) LOPRESSOR Imdur History: Allergies Allergy Reaction No Known Allergies iodine History: Risk Factors Family History of Hypertension Dyslipidemia Previous AK Previous Heart Failure Premature CAD Yes Yes No No No Prior Valve Prior PCI Prior CABG Prior CABGDate Surgery No No Yes 11/10/1990 Cerebrovascular Peripheral Artery Chronic Lung On Dialysis Diabetes Disease Disease Disease No No No No No History: Symptoms/Diagnosis Selection Items Chest pain History: CV Disease Selection Items Known CAD History: Stress Tests Stress or Imaging Studies Performed Yes Standard Exercise Stress Test No Stress Echo No Stress Test SPECT Stress Test SPECT Result Stress Test SPECT Ischemia Risk/Extent Yes Positive High Stress Test CMR No Cardiac CTA Coronary Calcium Score No No History: Other Disease Selection Items CAD History: Other Current Smoker No Labs Hgb (g/dl) Hct (%) WBC (l/cumm) 11.60-17.00 35.00-51.00 4.00-11.00 13.6 39.3 9.4 Glucose (mg/dl) BUN (mg/dl) Creatinine (mg/dl) BUN:Creatinine (1:x) 74.00-106.00 7.00-18.00 0.50-1.30 10.00-20.00 145 19 1.2 15.8 K (meq/l) 3.50-5.10 3.7 INR (PTT:PT) 0.90-1.10 1.1 CPK-MB (ng/ML) 0.50-3.60 Not Drawn Medication Medication Total Dose (Bolus/Oral) Medication Total Dosage/Unit 1% XYLOCAINE 20 mL BENADRYL 50 mg SOLU-CORTEF 100 mg VERSED 2 mg Medications (Bolus/Oral) Medication Time Given Dosage/Unit Administered By Reason SOLU-CORTEF 12/25/2017 12:27:24 PM 100 mg Hesher, Arlin 100 mg SOLU-CORTEF given in lab by Arlin Glover, RUSTY in Right Antecubital via Peripheral IV. BENADRYL 12/25/2017 12:27:41 PM 50 mg Hesher, Arlin 50 mg BENADRYL given in lab by Arlin Glover, RUSTY via Peripheral IV. VERSED 12/25/2017 12:29:52 PM 2 mg Hesher, Arlin 2 mg VERSED given in lab by Arlin Glover, RN via Peripheral IV. 1% XYLOCAINE 12/25/2017 12:30:01 PM 20 mL Damien Del Valle 20 mL 1% XYLOCAINE given in lab by Damien Del Valle in Left Groin via Subcutaneous. Final Case Assessment Cardiovascular HR Rhythm NIBP Chest Pain 64 reg 155/80 1 Edema Present Skin color Skin None Normal Warm Circulatory - Right Pulses Dorsalis Pedis Femoral 2 3 Scale (0,1,2,3,4,d) Circulatory - Left Pulses Dorsalis Pedis Femoral 2 3 Scale (0,1,2,3,4,d) Circulatory - Lower Extremities Color Lower Right Color Lower Left Normal Normal Neurological State Oriented to time-place- Alert Moves all extremities person Respiration - General Respiration Rate SpO2 (%) O2 (lpm) (B/min) 13 98 2 Initial Case Assessment Cardiovascular HR Rhythm NIBP Chest Pain 64 reg 156/85 1 Edema Present Skin color Skin None Normal Warm Circulatory - Right Pulses Dorsalis Pedis Femoral 2 3 Scale (0,1,2,3,4,d) Circulatory - Left Pulses Dorsalis Pedis Femoral 2 3 Scale (0,1,2,3,4,d) Circulatory - Lower Extremities Color Lower Right Color Lower Left Normal Normal Neurological State Oriented to time-place- Alert Moves all extremities person Respiration - General Respiration Rate SpO2 (%) O2 (lpm) (B/min) 13 97 2 Chronological Log Time Study Chronological Log 12:10:30 Patient arrived via Bed. 12:10:34 Patient Name, D.O.B, / Armband Verified By R.N. 12:10:36 Consent signed by the physician and the patient and verified by the [facility] staff. 12:10:38 Pre-op and post- op instructions given; patient acknowledges understanding of instructions. 12:10:45 Patient has been NPO for More than 6Hrs. 12:11:00 Skin Breakdown-MULT CONTUSIONS ON ARMS AND LEGS 12:11:14 Patient Warmer Placed on the Table. 12:12:00 Norberto Prominences Protected 12:15:41 Verbal Stimulation=2 Physical Stimulation=2 Airway=2 Respiration=2 TOTAL=8. (0=absent, 1=li mited, 2=present) 12:16:04 A # 20 IV was noted in the Antecubital (right). Grade = 0 12:16:07 History and physical on the chart or being dictated. Vitals capture started with the following parameters, Patient=Adult, Interval=5 min, Initial Pr rmetok=999 mmHg, 12:16:14 Deflation Rate=5 mmHg, Cuff placed on Left Arm 12:16:23 Bilateral groins prepped with 2% chlorhexidine, and draped after a 3 minute waiting time. 12:16:51 HR=60 bpm, HPWV=532/86 mmhg, SpO2=95.0 %, Resp=13 B/min, Pain=1, Pablo=10, Finn=2 12:20:11 Reference ECG taken 12:21:56 HR=56 bpm, ZRMN=139/83 mmhg, SpO2=96 %, Resp=16 B/min, Pain=1, Pablo=10, Finn=2 Assessment: Initial Case, HR=64 BPM, Rhythm=reg, XPTJ=975/85 mmhg, Chest Pain=1, Edema=None, Co oskana=Normal, Skin = Warm Right Pulses: Patrick Ped=2, Femoral=3 Left Pulses: Patrick Ped=2, Femoral=3 12:23:22 Lower Right Extremities: Color=Normal Lower Left Extremities: Color=Normal Neurological: State=Alert, Ox3, WALTERS Respiration: Resp=13 B/min, SpO2=97 %, O2=2 lpm 12:24:23 MD arrived. 12:24:50 pt arrived on 2 liters of oxygen 12:25:59 pt premedicated for iodine allergy 12:26:20 Pressure channel 1 zeroed. 12:26:55 HR=57 bpm, RIGH=402/85 mmhg, SpO2=95.0 %, Resp=13 B/min, Pain=1, Pablo=10, Finn=2 12:27:24 100 mg SOLU-CORTEF given in lab by Arlin Glover RN in Right Antecubital via Peripheral I V. 12:27:41 50 mg BENADRYL given in lab by Arlin Glover, RUSTY via Peripheral IV. Time Out. Correct patient, correct procedure, correct physician, power injector not loaded with contrast with surgical 12:28:07 team present. Time Out Concurred by MD and individual staff in procedure. 12::23 Case Start 12:29:52 2 mg VERSED given in lab by Arlin Glover, RUSTY via Peripheral IV. 12:30:01 20 mL 1% XYLOCAINE given in lab by Damien Del Valle in Left Groin via Subcutaneous. 12:31:54 HR=61 bpm, QWUE=963/85 mmhg, SpO2=92 %, Resp=14 B/min, Pain=1, Pablo=10, Finn=2 12:32:46 Access site was Left Femoral Artery. 12:32:52 A wire was inserted via Fem Art (left). 12:33:00 A SHEATH, FR6.5 PRELUDE 11CM FR 6.5 was advanced into the Fem Art (left) using the Percutan eous technique. A JL 4.0 INFINITI CATHETER FR 6 was advanced over a wire. OMNIPAQUE, 350 MG, 100ML 100ML was us ed for 12:33:59 injections. Recorded Pressure: Ao, HR=62, Condition=Condition 1 12:34:33 (Aorta) Ao 157/71/104 12:36:00 The LCA was injected and visualized at various angles. OMNIPAQUE, 350 MG, 100ML 100ML used . 12:36:25 Catheter was removed A JR 4.0 INFINITI CATHETER FR 6 was advanced over a wire. OMNIPAQUE, 350 MG, 100ML 100ML was us ed for 12:36:42 injections. 12:36:57 HR=62 bpm, LDBY=253/83 mmhg, SpO2=90.0 %, Resp=12 B/min, Pain=1, Pablo=10, Finn=2 12:37:46 The RCA was injected and visualized at various angles. OMNIPAQUE, 350 MG, 100ML 100ML used . 12:38:00 The SVG-LCX was injected and visualized at various angles. OMNIPAQUE, 350 MG, 100ML 100ML u sed. 12:38:48 The SVG-RCA was injected and visualized at various angles. OMNIPAQUE, 350 MG, 100ML 100ML u sed. 12:39:25 The GREWAL-LAD was injected and visualized at various angles. OMNIPAQUE, 350 MG, 100ML 100ML used. 12:39:51 Catheter was removed A 3DRC INFINITI CATHETER FR 6 was advanced over a wire. OMNIPAQUE, 350 MG, 100ML 100ML was used for 12:40:01 injections. 12:41:24 The RCA was injected and visualized at various angles. OMNIPAQUE, 350 MG, 100ML 100ML used . 12:41:32 power injector loaded now by s hesher and verified by t betty 12:41:54 HR=66 bpm, FIAJ=950/80 mmhg, SpO2=96.0 %, Resp=12 B/min, Pain=1, Pablo=10, Finn=2 12:42:02 Catheter was removed A PIGTAIL STR INFINITI CATHETER FR 6 was advanced over a wire. OMNIPAQUE, 350 MG, 100ML 100ML was used for 12:42:09 injections. 12:42:56 The AO Arch (A1) was injected at 20 cc/sec for a total of 40. OMNIPAQUE, 350 MG, 100ML 100 ML used. 12:45:03 Catheter was removed Assessment: Final Case, HR=64 BPM, Rhythm=reg, DGNL=473/80 mmhg, Chest Pain=1, Edema=None, Col or=Normal, Skin = Warm Right Pulses: Patrick Ped=2, Femoral=3 Left Pulses: Patrick Ped=2, Femoral=3 12:45:24 Lower Right Extremities: Color=Normal Lower Left Extremities: Color=Normal Neurological: State=Alert, Ox3, WALTERS Respiration: Resp=13 B/min, SpO2=98 %, O2=2 lpm 12:46:55 HR=66 bpm, OYZL=382/84 mmhg, SpO2=97.0 %, Resp=13 B/min, Pain=1, Pablo=10, Finn=2 12:47:37 An injection in the Fem Art (right) was made through the SHEATH, FR6.5 PRELUDE 11CM FR 6.5 . 12:47:53 Catheter(s) removed without difficulty 12:47:54 ANGIOSEAL, FR6 VIP FR 6 placement in the Fem Art (left) 12:50:04 Case End 12:50:06 Sterile dressing applied to site 12:50:09 No case complications noted. 12:50:10 Cine recording checked. 12:50:14 Bedside Report will be given. 12:51:28 Contrast Scanned 12:51:33 Verbal Stimulation=2 Physical Stimulation=2 Airway=2 Respiration=2 TOTAL=8. (0=absent, 1=l imited, 2=present) 12:51:42 A Left Heart Cath was performed. 12:51:47 Clinical correlaton risk stratification. 12:51:56 HR=65 bpm, UAXM=396/88 mmhg, SpO2=96.0 %, Resp=12 B/min, Pain=1, Pablo=10, Finn=2 12:56:57 HR=62 bpm, OLGP=765/84 mmhg, SpO2=95.0 %, Resp=11 B/min, Pain=1, Pablo=10, Finn=2 End Study - Contrast Media Used In Study Contrast Total Opened (mL) Total Used (mL) Total Wasted (mL) Omnipaque 80 80 0 End Study - Maximum Contrast Load Max Contrast Load (mL) 362.5 End Study - Radiation Exposure Fluoro Time (minutes) 4.4 End Study - Sheaths Sheaths Pulled By Sheath Hold Time (min) Damien Del Valle 2 End Study - Patient Disposition Complications Transferred To No Outpatient Bed
[2017-12-25] MEDS ORDERED: MISC INFORMATION XX ONE (13:00)
[2017-12-25] MEDS ORDERED: ONDANSETRON HCL 4 MG/2 ML VIAL IV PUSH PRN (13:00)
[2017-12-25] MEDS ORDERED: SODIUM CHLOR 0.9% 250 ML INJ 250 ML IV PRN (13:00)
[2017-12-25] MEDS ORDERED: ATROPINE SULFATE 1 MG/ML VIAL IV PUSH PRN (13:00)
--- NOTE | 2017-12-25 13:41 | HHI.PR ---
Subjective Remarks No new complaints. No chest pain. no palpitations. Pt is eager for discharge to home. Objective Vitals Vital Signs Date Time Temp Pulse Resp B/P (MAP) Pulse Ox O2 Delivery O2 Flow Rate FiO2 12/25/17 13:09 97 Nasal Cannula 2.00 12/25/17 08:13 97 Nasal Cannula 2.00 12/25/17 07:03 98.0 76 20 170/86 (114) 97 12/25/17 03:45 98.6 63 14 144/79 (100) 98 12/25/17 00:09 97.6 61 16 131/71 (91) 100 12/25/17 00:03 54 12/24/17 20:09 98.1 66 16 143/69 (93) 98 12/24/17 20:04 66 12/24/17 15:54 98.0 56 18 121/63 (82) 98 Result Diagram: 12/22/17 1500 12/22/17 1500 Imaging Last Impressions Myocardial Perfusion Scan Nuc Med 12/24/17 1300 Signed Impressions: Service Date/Time: Sunday, December 24, 2017 09:57 - CONCLUSION: Reversible defect involving the inferior wall raising concern for possible ischemia. RISK CATEGORY: Intermediate Kayden Hernandez Jr., MD Chest X-Ray 12/22/17 1431 Signed Impressions: Service Date/Time: Friday, December 22, 2017 14:45 - CONCLUSION: Previous bypass, complicated cardiomegaly David Mccabe MD FACR Lung Scan-VQ Nuclear Medicine 12/22/17 0000 Signed Impressions: Service Date/Time: Friday, December 22, 2017 18:21 - CONCLUSION: 1. Negative for pulmonary embolus. Williams Velásquez MD Objective Remarks GENERAL: This is a well-nourished, well-developed patient, in no apparent distress. CARDIOVASCULAR: Regular rate and rhythm without murmurs, gallops, or rubs. RESPIRATORY: Clear to auscultation. Breath sounds equal bilaterally. No wheezes , rales, or rhonchi. GASTROINTESTINAL: Abdomen soft, non-tender, nondistended. Normal active bowel sounds MUSCULOSKELETAL: Extremities without clubbing, cyanosis, or edema. NEURO: Alert & Oriented x4 to person, place, time, situation. Moves all ext x4 A/P Problem List: (1) Chest pain ICD Codes: R07.9 - Chest pain, unspecified Status: Acute Plan: - Pt admitted to [facility] 12/22/17 with c/o chest pain - Lexiscan (12/24) --> reversible perfusion defect at inferior wall - [facility] (12/25/17) with Dr. Damien Del Valle - No new intervention - discharge to home without change in pt's medication regimen - f/u with PCP, Dr. Cleveland, in 1 week - f/u with Dr. Damien Del Valle in 2 weeks - see discharge orders (2) COPD (chronic obstructive pulmonary disease) ICD Codes: J44.9 - Chronic obstructive pulmonary disease Status: Chronic Plan: - continue outpt medication regimen (3) Hypertension, benign ICD Codes: I10 - Benign hypertension Status: Chronic Plan: - continue outpt medication regimen Problem Qualifiers (1) Chest pain: Qualified Codes: R07.9 - Chest pain, unspecified Evens Reese DO Dec 25, 2017 13:41
--- NOTE | 2017-12-25 14:21 | MA ---
cc: EZIO GONZALEZ MD DATE 12/25/2017 PROCEDURE PERFORMED Cardiac Catheterization PROCEDURAL STATEMENT The patient was prepped and draped in the usual fashion. A 6 Kiswahili sheath was inserted percutaneously to the left femoral artery. Coronary angiography was done with Aristides preformed catheters. Grafts were also identified with the use of the right coronary catheter. Ascending aortography was done with pigtail catheter. RESULTS Aortic pressure is 157/70, pulse 70 and regular. CORONARY ANGIOGRAPHY The left main coronary demonstrated a 50% stenosis throughout its length. The left anterior descending artery was given off with a 95% stenosis in its proximal portion and the artery was then totally occluded. Competitive flow was noted in the body of the artery. The left circumflex artery was also arose from his left main. A 50-70% stenosis was present in its midportion and descended in the AV groove. An obtuse marginal branch was totally occluded. Faint collaterals to the right coronary were seen from the left circumflex system. The right coronary was dominant. It was essentially totally occluded at the origin with bridging collaterals noted supplying the distal portion of the artery. A saphenous vein graft to the right coronary was totally occluded at its origin as was a vein graft to the first diagonal branch. A vein graft to the distal obtuse marginal branch was widely patent with good flow into the marginal, as well as collateralization of the distal right. The internal mammary artery was grafted into the LAD and was widely patent. CONCLUSION The patient demonstrates three-vessel disease as noted above with occluded grafts to the diagonal and right coronaries, but with good collateralization of the right coronary system. Medical management will be continued. MD JUAN Marcos/LIVIA /12:58 PM /2:10 PM
== END 2017-12-25 15:15 | disposition home or self-care (01) ==
LOC: NEPE 14:20 → NEDA 19:24 → NEPFCDU 20:10 → HCIS 12-25 12:34
PROVIDERS: ADMIT Hospitalist; ATTEND Hospitalist
DX: I25.110 Atherosclerotic heart disease of native coronary artery with unstable angina pectoris (principal); I25.700 Atherosclerosis of coronary artery bypass graft(s), unspecified, with unstable angina pectoris; I11.9 Hypertensive heart disease without heart failure; R94.31 Abnormal electrocardiogram [ECG] [EKG]; R06.02 Shortness of breath; I73.9 Peripheral vascular disease, unspecified; E78.5 Hyperlipidemia, unspecified; J44.9 Chronic obstructive pulmonary disease, unspecified; H40.9 Unspecified glaucoma; F41.9 Anxiety disorder, unspecified; F32.9 Major depressive disorder, single episode, unspecified; I25.2 Old myocardial infarction; K21.9 Gastro-esophageal reflux disease without esophagitis; G89.29 Other chronic pain; M54.9 Dorsalgia, unspecified; Z95.1 Presence of aortocoronary bypass graft; Z95.5 Presence of coronary angioplasty implant and graft; Z95.820 Peripheral vascular angioplasty status with implants and grafts
CPT/HCPCS: 71045; 78452; 78582; 80053; 82550; 82552; 83690; 83735; 83880; 84484; 85025; 85379; 85610; 85730; 93005; 93017; 93454; 93567; 96374; 96375; 99152; 99153; 99285; A9502; A9540; A9567; C1760; C1769; C1893; G0269; G0378; J1200; J1644; J1720; J2250; J2270; J2405; J2785; J3010; J7040; J7512; Q9967